=== PATIENT | female | born 1945 | race Two or more races ===

== ENCOUNTER 2017-06-04 10:46 | Emergency (ER) | payer OTHER, MEDICAID ==
[~2017-06-04] VITALS: Ht 152.4 cm; Wt 77.1 kg
[2017-06-04] MEDS ORDERED: LANSOPRAZOLE30 MG ORAL (11:12)
[2017-06-04] MEDS ORDERED: VITAMIN D-32000 UNI1 PO (11:12)
[2017-06-04] MEDS ORDERED: METFORMIN HCL850 M1 ORAL (11:12)
[2017-06-04] MEDS ORDERED: HYDROCHLOROTHIA25 MG ORAL (11:12)
[2017-06-04] MEDS ORDERED: PRAVASTATIN SOD20 M1 ORAL (11:12)
[2017-06-04] MEDS ORDERED: PANTOPRAZOLE SO40 MG ORAL (11:12)
[2017-06-04] MEDS ORDERED: MULTIVITAMINS1 EA14 PO (11:12)
[2017-06-04] MEDS ORDERED: ASPIR-LOW81 MG ORAL (11:12)
[2017-06-04] MEDS ORDERED: METFORMIN HCL500 M1 ORAL (11:12)
[2017-06-04] MEDS ORDERED: BENAZEPRIL HCL20 MG ORAL (11:12)
[2017-06-04] MEDS ORDERED: IBUPROFEN600 MG ORAL (12:07)
[2017-06-04 12:11] VITALS: BP 148/68
--- NOTE | 2017-06-04 12:51 | Emergency Room Report ---
History of Present Illness General Chief Complaint: Lower Extremity Injury Source: Patient Present Illness HPI Patient presents with injury to the left second toe Patient 5 days ago dropped a piece of rock on the toe There was some discoloration to the toe increased pain Patient reports that she felt like the area needed to be drained And presents to the ER Pain is 3 out of 10 worse with touch denies any other trauma or injury Allergies: Coded Allergies: No Known Allergies (Unverified , 06/04/17) Patient History Past Medical History: see triage record Pertinent Family History: none Last Menstrual Period: menopause Reviewed Nursing Documentation: PMH: Agreed; PSxH: Agreed Nursing Documentation-PMH Hx Hypertension: Yes Hx Diabetes: Yes Review of Systems All Other Systems: negative except mentioned in HPI Physical Exam Vital Signs Date Time Temp Pulse Resp B/P (MAP) Pulse Ox O2 Delivery O2 Flow Rate FiO2 06/04/17 10:53 98.4 80 14 152/70 96 Room Air 98.4 Sp02 EP Interpretation: reviewed, normal General Appearance: well appearing, no apparent distress Head: normocephalic, atraumatic Eyes: bilateral eye PERRL, bilateral eye EOMI ENT: normal pharynx, no angioedema Neck: supple Respiratory: lungs clear, normal breath sounds Cardiovascular #1: regular rate, rhythm Gastrointestinal: non tender Musculoskeletal: other - Bruising noted to the distal aspect of the left second toe, no obvious subungual hematoma, neurovascularly intact Skin: other - As above Lymphatic: no adenopathy Medical Decision Making Diagnostic Impression: Primary Impression: contusion ER Course Given the appearance patient had imaging obtained of the foot No obvious fractures are identified Patient appears to have ecchymosis and bruising in line with a contusion and hematoma This will require secondary healing and further intervention was not taken patient will have close outpatient follow-up Other X-Ray Diagnostic Results Other X-Ray Diagnostic Results : X-Ray ordered: Left foot # of Views/Limited Vs Complete: 3 View Indication: Pain EP Interpretation: Yes Interpretation: no dislocation, no soft tissue swelling, no fractures Impression: No acute disease Electronically Signed by: Felix Bennett DO Last Vital Signs Date Time Temp Pulse Resp B/P (MAP) Pulse Ox O2 Delivery O2 Flow Rate FiO2 06/04/17 12:11 98.4 70 14 148/68 98 Room Air 98.4 Status: improved Disposition: HOME, SELF-CARE Condition: Improved Scripts Ibuprofen* (MOTRIN*) 600 Mg Tablet 600 MG ORAL Q8H PRN for For Pain, #12 TAB 0 Refills Prov: Felix Bennett DO 06/04/17 Referrals: [facility],REFERRING (PCP) Patient Instructions: Contusion, [id number] Additional Instructions: Patient is provided with the discharge instructions notified to follow up with primary doctor in the next 2-3 days otherwise return to the er with any worsening symptoms. Please note that this report is being documented using [employer] technology. This can lead to erroneous entry secondary to incorrect interpretation by the dictating instrument. Felix Bennett DO Jun 04, 2017 12:51
--- NOTE | 2017-06-04 15:08 | Diagnostic Imaging Report ---
Indication: Foot pain Technique: 3 views right foot Comparison: No Findings: Bones are osteoporotic. No acute fractures. No dislocations. The joint spaces are preserved. There are plantar and calcaneal spurs. Impression: No acute process
== END 2017-06-04 12:13 | disposition home or self-care (01) ==
LOC: EMR 11:27
DX: S90.122A Contusion of left lesser toe(s) without damage to nail, initial encounter (principal); W20.8XXA Other cause of strike by thrown, projected or falling object, initial encounter; Y92.9 Unspecified place or not applicable; E11.9 Type 2 diabetes mellitus without complications; I10 Essential (primary) hypertension
CPT/HCPCS: 99283

== ENCOUNTER 2018-02-18 12:22 | Emergency (ER) | payer OTHER, MEDICAID ==
[~2018-02-18] VITALS: Ht 157.5 cm; Wt 77.1 kg
[~2018-02-18 12:22] MED LIST: ASPIR-LOW81 MG ORAL; BENAZEPRIL HCL20 MG ORAL; HYDROCHLOROTHIA25 MG ORAL; IBUPROFEN600 MG ORAL; LANSOPRAZOLE30 MG ORAL; METFORMIN HCL500 M1 ORAL; METFORMIN HCL850 M1 ORAL; MULTIVITAMINS1 EA14 PO; PANTOPRAZOLE SO40 MG ORAL; PRAVASTATIN SOD20 M1 ORAL; VITAMIN D-32000 UNI1 PO
[2018-02-18 12:46] VITALS: BP 150/80
[2018-02-18] MEDS ORDERED: Levofloxacin 500mg tab ORAL ONE (13:45)
[2018-02-18] MEDS ORDERED: ROBITUSSIN NIG237 ML PO (14:13)
[2018-02-18] MEDS ORDERED: LEVAQUIN750 MG ORAL (14:13)
[2018-02-18 14:28] VITALS: BP 146/79
[2018-02-18 14:29] VITALS: BP 146/79
--- NOTE | 2018-02-18 14:32 | Diagnostic Imaging Report ---
Indication: Shortness of breath Technique: One view of the chest Comparison: none Findings: There is some atelectasis at left lung base. Lungs and pleural spaces are otherwise clear. Heart size is normal Impression: No acute process
--- NOTE | 2018-02-21 07:10 | Emergency Room Report ---
History of Present Illness General Chief Complaint: Upper Respiratory Illness Source: Patient Present Illness HPI Patient presents with complaints of several weeks of cough worsening over the past several days Denies any fevers denies any chest pain Has some mild body aches denies any vomiting or diarrhea Denies any rash Cough appears to have been more at nighttime however also present throughout the day denies any exertional dyspnea Denies any change with position Denies any blood-tinged Allergies: Coded Allergies: No Known Allergies (Unverified , 06/04/17) Patient History Past Medical History: see triage record Pertinent Family History: none Reviewed Nursing Documentation: PMH: Agreed; PSxH: Agreed Nursing Documentation-PMH Hx Hypertension: Yes Hx Diabetes: Yes Hx Cerebrovascular Accident: Yes Review of Systems All Other Systems: negative except mentioned in HPI Physical Exam Vital Signs Date Time Temp Pulse Resp B/P (MAP) Pulse Ox O2 Delivery O2 Flow Rate FiO2 02/18/18 12:33 98.4 105 18 150/80 94 Room Air Sp02 EP Interpretation: reviewed, normal General Appearance: well appearing, no apparent distress Head: normocephalic, atraumatic Eyes: bilateral eye PERRL, bilateral eye EOMI ENT: hearing grossly normal, normal pharynx, TMs + canals normal, uvula midline Neck: full range of motion, supple, no meningismus, no bony tend Respiratory: lungs clear, normal breath sounds, no rhonchi, no respiratory distress, no retraction, no accessory muscle use Cardiovascular #1: normal peripheral pulses, regular rate, rhythm, no edema, no gallop, no JVD, no murmur Gastrointestinal: normal bowel sounds, non tender, soft, no mass, no organomegaly, non-distended, no guarding, no hernia, no pulsatile mass, no rebound Genitourinary: no CVA tenderness Musculoskeletal: normal inspection Neurologic: oriented x3, responsive, supervisor safety deposit III-XII nml as tested, motor strength/ tone normal, sensory intact Psychiatric: mood/affect normal Skin: normal color, no rash, warm/dry, palpation normal Lymphatic: normal inspection, no adenopathy Medical Decision Making Diagnostic Impression: Primary Impression: pneumonia ER Course Given the duration of symptoms and the patient's presentation imaging was obtained there are some increased markings in the left lower lobe concerning for possible developing pneumonia patient is provided with antibiotics here and placed on antibiotics for home Given her age and risk factors it was recommended to have close follow-up with primary physician And repeat evaluation to make sure this Area clears as these findings could be signs of other differentials such as cancer and other problems Last Vital Signs Date Time Temp Pulse Resp B/P (MAP) Pulse Ox O2 Delivery O2 Flow Rate FiO2 02/18/18 14:29 98.4 98 18 146/79 98 Room Air Status: improved Disposition: HOME, SELF-CARE Condition: Improved Scripts Dextromethorphan Hb/Doxylamine (ROBITUSSIN NIGHTTIME COUGH DM) 237 Ml Liquid 10 ML PO Q12HR for 5 Days, ML Prov: Felix Bennett DO 02/18/18 Levofloxacin* (LEVAQUIN*) 750 Mg Tablet 750 MG ORAL DAILY for 7 Days, TAB Prov: Felix Bennett DO 02/18/18 Referrals: [facility],REFERRING (PCP) Patient Instructions: Community-Acquired Pneumonia, Adult Additional Instructions: Please follow-up with your primary physician for repeat imaging and making sure that this infection has cleared. If you have any worsening symptoms such as increased cough or fevers or any shortness of breath please return to the ER more emergently Felix Bennett DO Feb 21, 2018 07:10
== END 2018-02-18 15:30 | disposition home or self-care (01) ==
LOC: EMR 14:15
DX: J18.9 Pneumonia, unspecified organism (principal); E11.9 Type 2 diabetes mellitus without complications; I10 Essential (primary) hypertension
CPT/HCPCS: 71045; 99283